=== PATIENT | male | born 1960 | race American Indian/Alaskan Native ===

== ENCOUNTER 2020-02-29 22:36 | Emergency (ER) | payer MEDICARE ==
[2020-02-29 23:55] VITALS: BP 150/88
--- NOTE | 2020-03-01 00:52 | XRay Report ---
RIGHT RIB SERIES, 3 VIEWS INDICATION / CLINICAL INFORMATION: right rib pain. COMPARISON: None available. FINDINGS: Multiple rib fractures are present. There are fractures of the posterior right ribs including 7th thr ough 12th ribs. Rib fractures are mildly displaced. I do not see any fractures of the upper right rib s. No suggestion of pneumothorax or hemothorax. IMPRESSION: 1. Multiple mildly displaced posterior right rib fractures including 7th through 12th ribs. 2. No visible pneumothorax or hemothorax. LUMBOSACRAL SPINE, 2 VIEWS INDICATION / CLINICAL INFORMATION: Lower back pain. COMPARISON: None available. FINDINGS: Vertebral body heights and disc spaces are fairly well-preserved. Posterior alignment is normal. I do not see suggestion of fracture or significant degenerative change involving the lumbar spine. Spinal stimulator is present. IMPRESSION:: 1. No suggestion of lumbar spine fracture or traumatic malalignment. 2. No significant degenerative change. Signer Name: Lakshmi Benjamin MD Signed: 03/01/2020 12:47 AM Workstation Name: [email or web address]
[2020-03-01] MEDS ORDERED: HYDROcodone/ACETAMINOPHEN 5-325 MG TAB PO ONE (04:08)
--- NOTE | 2020-03-01 04:15 | Emergency Department Report ---
ED Fall HPI - General Chief Complaint: Fall Stated Complaint: LOWER BACK PAIN/FALL Time Seen by Provider: 03/01/20 04:09 Source: patient Mode of arrival: Stretcher - History of Present Illness Initial Comments: Patient is a 59-year-old -[place] male who presents for right flank and rib pain status post fall yesterday. Patient states he fell 3 weeks ago sustaining multiple right posterior rib fractures. Patient is followed by Dr. Hopper who is treating for same. Patient states he just slipped and fell at home and his family called ambulance to bring him to the hospital. There is no cough, wheeze, stridor no shortness of breath. There is no abrasion, laceration or bleeding. There is no hemoptysis no other symptoms. No chest pain. Patient is alert and oriented x3 and ambulatory with steady gait. He rates pain at 7/10 right lateral rib, father states out of medication for pain. MD Complaint: fall Onset/Timin -: days(s) Fall From: standing When Fall Occurred: # days PROVIDER RELATIONS COORDINATOR (1) Fall Witnessed: yes, by family Place Fall Occurred: home Loss of Consciousness: none Prolonged Down Time?: no Symptoms Prior to Fall: none Location: chest (right chest wall ribs) Severity: moderate Severity scale (0 -10): 5 Quality: aching Context: tripped/slipped Associated Symptoms: denies: neck pain, numbness, weakness, shortness of breath, vertigo - Related Data Home Medications Medication Instructions Recorded Confirmed Last Taken Famotidine [Pepcid] 20 mg PO DAILY 11/15/13 11/15/13 Unknown Gabapentin 100 mg PO BID 11/15/13 11/15/13 Unknown Vit D3/Folic Acid/B2/B6/B12 1 tab PO DAILY 11/15/13 11/15/13 Unknown [Folgard Tablet] Previous Rx's Medication Instructions Recorded Last Taken Type Aspirin [Aspirin BABY CHEW TAB] 81 mg PO QDAY #30 tab.chew 11/16/13 Unknown Rx Folic Acid [Folvite] 1 mg PO QDAY #30 tablet 11/16/13 Unknown Rx Multivitamin [Multi-Vitamin Daily] 1 each PO QDAY #30 tablet 11/16/13 Unknown Rx Pantoprazole [Protonix] 40 mg PO QDAY #30 tablet 11/16/13 Unknown Rx Thiamine [Vitamin B-1] 100 mg PO QDAY #30 tablet 11/16/13 Unknown Rx hydroCHLOROthiazide [HCTZ] 12.5 mg PO QDAY #30 capsule 11/16/13 Unknown Rx Acetaminophen/Codeine [Tylenol 1 tab PO Q6H PRN #12 tab 03/01/20 Unknown Rx /Codeine # 3 tab] Allergies Allergy/AdvReac Type Severity Reaction Status Date / Time Penicillins Allergy Unknown Verified 11/15/13 20:31 ED Review of Systems ROS: Stated complaint: LOWER BACK PAIN/FALL Other details as noted in HPI Constitutional: denies: chills, fever Eyes: denies: eye pain, eye discharge, vision change ENT: as per HPI Respiratory: denies: cough, shortness of breath, wheezing Cardiovascular: denies: chest pain, palpitations Endocrine: no symptoms reported Gastrointestinal: denies: abdominal pain, nausea, diarrhea Genitourinary: denies: urgency, dysuria Musculoskeletal: other (right rib pain ). denies: back pain, joint swelling, arthralgia Skin: denies: rash, lesions Neurological: denies: headache, weakness, paresthesias Psychiatric: denies: anxiety, depression Hematological/Lymphatic: denies: easy bleeding, easy bruising ED Past Medical Hx - Past Medical History Previous Medical History?: Yes Hx GERD: Yes Additional medical history: RSD / acid reflux/ emphysema - Surgical History Past Surgical History?: Yes Additional Surgical History: neck/ spinal stimulator 1998 - Social History Smoking Status: Current Every Day Smoker Substance Use Type: Alcohol - Medications Home Medications: Home Medications Medication Instructions Recorded Confirmed Last Taken Type Famotidine [Pepcid] 20 mg PO DAILY 11/15/13 11/15/13 Unknown History Gabapentin 100 mg PO BID 11/15/13 11/15/13 Unknown History Vit D3/Folic Acid/B2/B6/B12 1 tab PO DAILY 11/15/13 11/15/13 Unknown History [Folgard Tablet] Aspirin [Aspirin BABY CHEW TAB] 81 mg PO QDAY #30 tab.chew 11/16/13 Unknown Rx Folic Acid [Folvite] 1 mg PO QDAY #30 tablet 11/16/13 Unknown Rx Multivitamin [Multi-Vitamin Daily] 1 each PO QDAY #30 tablet 11/16/13 Unknown R x Pantoprazole [Protonix] 40 mg PO QDAY #30 tablet 11/16/13 Unknown Rx Thiamine [Vitamin B-1] 100 mg PO QDAY #30 tablet 11/16/13 Unknown Rx hydroCHLOROthiazide [HCTZ] 12.5 mg PO QDAY #30 capsule 11/16/13 Unknown Rx Acetaminophen/Codeine [Tylenol 1 tab PO Q6H PRN #12 tab 03/01/20 Unknown Rx /Codeine # 3 tab] ED Physical Exam - General Limitations: No Limitations General appearance: alert, in no apparent distress - Head Head exam: Present: normocephalic, normal inspection - Eye Eye exam: Present: normal appearance, PERRL, EOMI Pupils: Present: normal accommodation - ENT ENT exam: Present: mucous membranes moist - Neck Neck exam: Present: normal inspection, full ROM. Absent: tenderness - Respiratory Respiratory exam: Present: normal lung sounds bilaterally, chest wall tenderness (right posterior lateral rib pain ). Absent: respiratory distress, wheezes, ral es, rhonchi, stridor - Cardiovascular Cardiovascular Exam: Present: regular rate, normal rhythm, normal heart sounds. Absent: systolic murmur, diastolic murmur, rubs, gallop - GI/Abdominal GI/Abdominal exam: Present: soft, normal bowel sounds. Absent: distended, tenderness, guarding, rebound, mass, bruit - Rectal Rectal exam: Present: deferred - Extremities Exam Extremities exam: Present: normal inspection, full ROM, normal capillary refill. Absent: tenderness - Back Exam Back exam: Present: normal inspection, full ROM, CVA tenderness (R). Absent: tenderness, CVA tenderness (L), muscle spasm, paraspinal tenderness, vertebral tenderness - Neurological Exam Neurological exam: Present: alert (Patient is a), oriented X3, CN II-XII intact, normal gait. Absent: reflexes normal - Psychiatric Psychiatric exam: Present: normal affect, normal mood - Skin Skin exam: Present: warm, dry, intact, normal color. Absent: rash ED Course Vital Signs 02/29/20 23:53 Temperature 97.8 F Pulse Rate 77 Respiratory 18 Rate Blood Pressure 150/88 O2 Sat by Pulse 98 Oximetry ED Medical Decision Making - Radiology Data Radiology results: report reviewed, image reviewed Findings Reporting MD: Lakshmi Benjamin Dictation Time: February 29, 2020 23:47 Electro Mechanical Solar Technician: Not available Fiberglass Laminator Date: RIGHT RIB SERIES, 3 VIEWS INDICATION / CLINICAL INFORMATION: right rib pain. COMPARISON: None available. FINDINGS: Multiple rib fractures are present. There are fractures of the posterior right ribs including 7th through 12th ribs. Rib fractures are mildly displaced. I do not see any fractures of the upper right ribs. No suggestion of pneumothorax or hemothorax. IMPRESSION: 1. Multiple mildly displaced posterior right rib fractures including 7th through 12th ribs. 2. No visible pneumothorax or hemothorax. LUMBOSACRAL SPINE, 2 VIEWS INDICATION / CLINICAL INFORMATION: Lower back pain. COMPARISON: None available. FINDINGS: Vertebral body heights and disc spaces are fairly well-preserved. Posterior alignment is normal. I do not see suggestion of fracture or significant degenerative change involving the lumbar spine. Spinal stimulator is present. IMPRESSION:: 1. No suggestion of lumbar spine fracture or traumatic malalignment. 2. No significant degenerative change. Signer Name: Lakshmi Benjamin MD Signed: 02/29/2020 11:47 PM Workstation Name: [id number] - Medical Decision Making Chest x-ray demonstrates right posterior rib fractures 7 through 12 this incident happened 2 weeks ago. Follow-up fall no new acute fractures plan DC to home with prescription for NSAIDs, Follow-up with Ortho , follow-up with PCP Critical care attestation.: If time is entered above; I have spent that time in minutes in the direct care of this critically ill patient, excluding procedure time. ED Disposition Clinical Impression: Fall Qualifiers: Encounter type: initial encounter Qualified Code(s): W19.XXXA - Unspecified fall, initial encounter Closed rib fracture Qualifiers: Encounter type: subsequent encounter Rib fracture type: multiple ribs Lat erality: right Fracture healing: with routine healing Qualified Code(s): S22.41XD - Multiple fractures of ribs, right side, subsequent encounter for fracture with routine healing Disposition: DC-01 TO HOME OR SELFCARE Is pt being admited?: No Does the pt Need Aspirin: No Condition: Stable Instructions: Rib Fracture, Rib Fracture, [id number] Prescriptions: Acetaminophen/Codeine [Tylenol /Codeine # 3 tab] 1 tab PO Q6H PRN #12 tab PRN Reason: pain Referrals: JYOTI CULP MD [Staff Physician] - 3-5 Days Forms: Work/School Release Form(ED) Time of Disposition: 04:30
== END 2020-03-01 05:00 | disposition home or self-care (01) ==
LOC: ED 22:36
DX: S22.31XA Fracture of one rib, right side, initial encounter for closed fracture (principal); K21.9 Gastro-esophageal reflux disease without esophagitis; F17.200 Nicotine dependence, unspecified, uncomplicated; Z98.890 Other specified postprocedural states; Z79.899 Other long term (current) drug therapy; Z88.0 Allergy status to penicillin; W19.XXXA Unspecified fall, initial encounter; Y93.89 Activity, other specified; Y92.009 Unspecified place in unspecified non-institutional (private) residence as the place of occurrence of the external cause; Y99.8 Other external cause status
CPT/HCPCS: 72100

== ENCOUNTER 2020-03-02 14:00 | Emergency (ER) | payer MEDICARE ==
--- NOTE | 2020-03-02 14:17 | Emergency Department Report ---
- HPI History of Present Illness: 59-year-old -[place] male presents to the emergency room stating that he was discharged yesterday and his IV was accidentally left in his right arm. Patient states that his had taken it out and they had blood everywhere. Patient reports that there is no bleeding at this time but was told to come in to be evaluated. Patient reports minimal discomfort. He has not got his prescription filled for his Tylenol 3. It was noted that patient had this multiple rib fractures. Patient has no other complaints. - Exam Physical Exam: Patient is alert and oriented x3 no acute distress nontoxic in appearance Lungs no accessory muscles use Right AC bandage removed no swelling mild tenderness full range of motion in a little bruising from where the bandage was. No active bleeding appreciated. Patient is ambulatory with a cane. MSE screening note: Focused history and physical exam performed. Due to findings the following was ordered: 59-year-old -[place] male presents to the emergency room stating that he was discharged yesterday and his IV was accidentally left in his right arm. Patient states that his had taken it out and they had blood everywhere. Patient reports that there is no bleeding at this time but was told to come in to be evaluated. Patient reports minimal discomfort. He has not got his prescription filled for his Tylenol 3. It was noted that patient had this multiple rib fractures. Patient has no other complaints. Arm appears to be without injury there is no swelling minimal redness from the bandage full range of motion mild tenderness to touch of the AC. Directed patient to use cold therapy get his prescription filled and follow-up with his primary care provider. <DOYLE ADAM - Last Filed: 03/02/20 14:26> - Exam Vital Signs: Vital Signs 03/02/20 14:26 Temperature 99.2 F Pulse Rate 58 L Respiratory 16 Rate MSE screening note: Focused history and physical exam performed. Due to findings the following was ordered: <PERLA MAHER - Last Filed: 03/02/20 14:31> Stated Complaint: FOLLOW UP ON RT ARM ED Disposition for MSE Is pt being admited?: No Does the pt Need Aspirin: No <DOYLE ADAM - Last Filed: 03/02/20 14:26> <PERLA MAHER - Last Filed: 03/02/20 14:31> Clinical Impression: Right arm pain Disposition: Z-07 MED SCREENING EXAM-LEFT Condition: Stable Instructions: How to Use Cold Therapy, [id number] Additional Instructions: Please take your pain medication as prescribed. You can use ice on you arm today and than heat tomorrow. Referrals: YENY CARTER JR, MD [Staff Physician] - 3-5 Days
== END 2020-03-02 14:35 | disposition left against medical advice (07) ==
LOC: ED 14:00
DX: M79.601 Pain in right arm (principal); Z53.21 Procedure and treatment not carried out due to patient leaving prior to being seen by health care provider